=== PATIENT | female | born 2000 | race Caucasian/White ===

== ENCOUNTER 2018-10-30 13:27 | Emergency (ER) | payer BC, OTHER ==
[2018-10-30 13:55] VITALS: BP 115/76
--- NOTE | 2018-10-30 14:18 | UC ---
Complaint Female HPI - HPI Summary HPI Summary: 18 year old female presents with 2 day history of dysuria, frequency, and urgency. Denies fever, chills, abdominal pain, nausea, vomiting, back/flank pain , hematuria, vaginal discharge, or dyspareunia. - History Of Current Complaint Chief Complaint: UCGU Stated Complaint: URINARY Time Seen by Provider: 10/30/18 13:51 Hx Obtained From: Patient Hx Last Menstrual Period: 1-2 weeks ago Onset/Duration: Gradual Onset, Lasting Days - 2 Pain Intensity: 0 Character: Burning Aggravating Factor(s): Urination Associated Signs And Symptoms: Negative: Fever, Back Pain, Vaginal Bleeding/ Discharge, Nausea, Vomiting(# Of Episodes =), Genital Swelling, Genital Blisters - Allergies/Home Medications Allergies/Adverse Reactions: Allergies Allergy/AdvReac Type Severity Reaction Status Date / Time cefuroxime [From Ceftin] Allergy Vomiting Verified 10/30/18 13:50 Home Medications: Home Medications Etonogestrel [Nexplanon] 68 mg .SEE ORDER ONCE 10/30/18 [History Confirmed 10/30] PMH/Surg Hx/FS Hx/Imm Hx Previously Healthy: Yes GI/ History: Renal Disease - Glomerulonephritis - Surgical History Surgical History: Yes Surgery Procedure, Year, and Place: KIDNEY BIOPSIES X2 - Family History Known Family History: Positive: Non-Contributory - Social History Occupation: Employed Part-time Lives: With Family Alcohol Use: None Substance Use Type: None Smoking Status (MU): Never Smoked Tobacco Review of Systems All Other Systems Reviewed And Are Negative: Yes Constitutional: Negative: Fever, Chills Gastrointestinal: Negative: Abdominal Pain, Vomiting, Diarrhea, Nausea Genitourinary: Positive: Dysuria, Frequency, Urgency. Negative: Hematuria, Vaginal/Penile Burning, Vaginal/Penile Itching, Vaginal/Penile Discharge, Ulceration/Lesion, Abnormal Bleeding Is Patient Immunocompromised?: No Physical Exam - Summary Physical Exam Summary: GENERAL APPEARANCE: Well developed, well nourished, alert and cooperative, and appears to be in no acute distress. CARDIAC: Normal S1 and S2. No S3, S4 or murmurs. Rhythm is regular. There is no peripheral edema, cyanosis or pallor. Extremities are warm and well perfused. Capillary refill is less than 2 seconds. LUNGS: Clear to auscultation and percussion without rales, rhonchi, wheezing or diminished breath sounds. ABDOMEN: Positive bowel sounds. Soft, nondistended, nontender. No guarding or rebound. No masses or hepatosplenomegally. No CVA tenderness. MUSKULOSKELETAL: ROM intact to all extremities. No joint erythema or tenderness. Normal muscular development. Normal gait. NEUROLOGICAL: Awake, alert, and oriented. SKIN: Skin normal color, texture and turgor with no lesions or eruptions. Triage Information Reviewed: Yes Vital Signs: Initial Vital Signs Temp 98.1 F 10/30/18 13:52 Pulse 89 10/30/18 13:52 Resp 14 10/30/18 13:52 BP 115/76 10/30/18 13:52 Pulse Ox 100 10/30/18 13:52 Vital Signs Reviewed: Yes Diagnostics - Laboratory Diagnostic Studies Completed/Ordered: POC US 3+ blood, 3+ protein, 1+ leukocytes. Urine culture pending. Complaint Female Dx - Course Course Of Treatment: 18 year old female presents with 2 day history of dysuria, frequency, and urgency. Denies fever, chills, abdominal pain, nausea, vomiting, back/flank pain, hematuria, vaginal discharge, or dyspareunia. Afebrile. Exam unremarkable. POC UA reveals 3+ protein, 3+ blood, and 1+ leukocytes. Culture pending. Will treat empirically for acute cystitis with Bactrim DS BID x 5 days. Provided Pyridium TID for 2 days for dysuria. She is to follow up with her PCP in 5-7 days if symptoms persist. Warning symptoms reviewed. Verbalizes understanding and agrees with POC. - Differential Dx/Diagnosis Differential Diagnosis/HQI/PQRI: , Renal Colic, Ureteral Stone, Urinary Tract Infection Provider Diagnosis: Acute cystitis with hematuria Discharge - Sign-Out/Discharge Documenting (check all that apply): Patient Departure All imaging exams completed and their final reports reviewed: No Studies - Discharge Plan Condition: Stable Disposition: HOME Prescriptions: Phenazopyridine TAB* [Pyridium 100 mg TAB*] 100 mg PO TID #6 tab Sulfamethox/Trimethoprim DS* [Bactrim DS 800/160 TAB*] 1 tab PO BID #10 tab Patient Education Materials: Urinary Tract Infection in Women (ED) Referrals: No Primary Care Phys,NOPCP [Primary Care Provider] - Additional Instructions: Your urine test in the clinic today is suggestive of a urinary tract infection. We will start you on an antibiotic to treat for the infection. We will also send a urine culture today to see what bacteria grow out and make sure the antibiotic you were prescribed is appropriate to treat the infection. It will take 48-72 hours to get these results. We will contact you if there is any change in your treatment plan. Take Bactrim DS 1 tab every 12 hours for 5 days. Take Pyridium 1 tablet every 8 hours for next 2 days to help with the discomfort. This medication will turn your urine an orange color. Drink plenty of fluids. To help prevent urinary tract infections: 1) Be sure to wipe from front to back. 2) Urinate immediately after any sexual intercourse. 3) Avoid taking bubble baths. Follow up with your primary care provider in 5-7 days if symptoms persist. Seek immediate medical attention in the emergency room if you develop fever greater than 100.5 F, have severe abdominal pain, persistent vomiting, or any worsening of symptoms. - Billing Disposition and Condition Condition: STABLE Disposition: Home
== END 2018-10-30 14:29 | disposition home or self-care (01) ==
LOC: UCCORT 13:27
DX: N30.01 Acute cystitis with hematuria (principal); Z88.1 Allergy status to other antibiotic agents
CPT/HCPCS: 81003; 87086; 99202; G0463

== ENCOUNTER 2019-02-04 17:49 | Emergency (ER) | payer OTHER ==
[2019-02-04 18:06] VITALS: BP 128/83
--- NOTE | 2019-02-04 18:22 | UC ---
UC General HPI - HPI Summary HPI Summary: x4 months pt has had "popping" in her jaw, mainly left side but now is feeling bilateral pain and "constant cracking". Both sibling and mother have hx of TMJ - History of Current Complaint Chief Complaint: UCGeneralIllness Stated Complaint: JAW COMPLAINT Time Seen by Provider: 02/04/19 18:19 Hx Obtained From: Patient Hx Last Menstrual Period: current Onset/Duration: Sudden Onset, Lasting Weeks Onset Severity: Mild Current Severity: Mild Pain Intensity: 2 Associated Signs & Symptoms: Positive: Other - clicking and popping with jaw movment - Allergy/Home Medications Allergies/Adverse Reactions: Allergies Allergy/AdvReac Type Severity Reaction Status Date / Time cefuroxime [From Ceftin] Allergy Vomiting Verified 02/04/19 18:06 PMH/Surg Hx/FS Hx/Imm Hx Previously Healthy: Yes - Surgical History Surgical History: Yes Surgery Procedure, Year, and Place: KIDNEY BIOPSIES X2 - Family History Known Family History: Positive: Non-Contributory Negative: Cardiac Disease, Hypertension - Social History Alcohol Use: None Substance Use Type: None Smoking Status (MU): Never Smoked Tobacco Review of Systems All Other Systems Reviewed And Are Negative: Yes Constitutional: Positive: Negative Skin: Positive: Negative Eyes: Positive: Negative ENT: Positive: Other - jaw pain Respiratory: Positive: Negative Cardiovascular: Positive: Negative Gastrointestinal: Positive: Negative Genitourinary: Positive: Negative Motor: Positive: Negative Neurovascular: Positive: Negative Musculoskeletal: Positive: Negative Neurological: Positive: Negative Psychological: Positive: Negative Is Patient Immunocompromised?: No Physical Exam Triage Information Reviewed: Yes Appearance: Well-Appearing, Well-Nourished, Pain Distress Vital Signs: Initial Vital Signs Temp 97.9 F 02/04/19 18:03 Pulse 87 02/04/19 18:03 Resp 18 02/04/19 18:03 BP 128/83 02/04/19 18:03 Pulse Ox 100 02/04/19 18:03 Vital Signs Reviewed: Yes Eye Exam: Normal ENT Exam: Normal ENT: Positive: Pharynx normal, Other - left TMJ musculature is tight, pain with palpation ans stretching Dental Exam: Normal Neck exam: Normal Neck: Positive: Supple, Nontender, No Lymphadenopathy Respiratory Exam: Normal Cardiovascular Exam: Normal Abdominal Exam: Normal Bowel Sounds: Positive: Present Musculoskeletal Exam: Normal Neurological Exam: Normal Psychological Exam: Normal Skin Exam: Normal Course/Dx - Course Course Of Treatment: hx obtained, exam performed ,meds reviewed, demonstrated stertches and exercises to help the pain and imbalance - Diagnoses Provider Diagnosis: TMJ arthralgia Discharge - Sign-Out/Discharge Documenting (check all that apply): Patient Departure All imaging exams completed and their final reports reviewed: No Studies - Discharge Plan Condition: Stable Disposition: HOME Patient Education Materials: Temporomandibular Disorder (ED) Referrals: No Primary Care Phys,NOPCP [Primary Care Provider] - Additional Instructions: 1. heat the jaw and stretch like we talked about 2. Tylenol for pain 3. If not improving with the heat, stretching and rest. follow up with PT. - Billing Disposition and Condition Condition: STABLE Disposition: Home
== END 2019-02-04 18:41 | disposition home or self-care (01) ==
LOC: UCCORT 17:49
DX: M26.623 Arthralgia of bilateral temporomandibular joint (principal); Z88.1 Allergy status to other antibiotic agents
CPT/HCPCS: 99211; G0463

== ENCOUNTER 2019-11-12 14:12 | Emergency (ER) | payer OTHER ==
[2019-11-12 14:25] VITALS: BP 112/67
--- NOTE | 2019-11-12 14:38 | UC ---
Skin Complaint HPI - HPI Summary HPI Summary: Pt presents with c/o of painful lump on forehead that began after pt states she had a pimple on left side of forehead that she "popped" and noticed that a blood blister formed after. Pt attempted to drain the blood blister with no drainage. Now pt states that bump is painful and soft but "attached" to left side of forehead and has enlarge since initial onset. - History of Current Complaint Chief Complaint: UCSkin Time Seen by Provider: 11/12/19 14:18 Stated Complaint: SKIN CONCERN Hx Obtained From: Patient Hx Last Menstrual Period: 10/17/19 ?: No Onset/Duration: Gradual Onset, Lasting Weeks, Still Present, Worse Since - onset Skin Exposure Onset/Duration: Weeks Ago Timing: Constant Onset Severity: Mild Current Severity: Mild Pain Intensity: 0 Location: Discrete, Face - left side of forehead Character: Swelling, Redness, Raised, Painful Aggravating Factor(s): Touch Alleviating Factor(s): Nothing Associated Signs & Symptoms: Positive: Tenderness Related History: Trauma - with attempts to pop and drain - Allergy/Home Medications Allergies/Adverse Reactions: Allergies Allergy/AdvReac Type Severity Reaction Status Date / Time cefuroxime [From Ceftin] Allergy Vomiting Verified 11/12/19 14:26 Home Medications: Home Medications Fexofenadine HCl [Allergy Relief] 60 mg PO DAILY 11/12/19 [History Confirmed ] Lisinopril [Zestril 5 MG-] 5 mg PO BID 11/12/19 [History Confirmed 11/12/19] [place]coe-3 Fatty Acids (Nf) [Fish Oil (NF)] 6,000 mg PO BID 11/12/19 [History Confirmed 11/12/19] Venlafaxine HCl [Effexor XR-] 37.5 mg PO DAILY 11/12/19 [History Confirmed 11/12] PMH/Surg Hx/FS Hx/Imm Hx Previously Healthy: Yes - Surgical History Surgical History: Yes Surgery Procedure, Year, and Place: KIDNEY BIOPSIES X 3-last was 08/2019 - Family History Known Family History: Positive: Non-Contributory Negative: Cardiac Disease, Hypertension - Social History Lives: With Family Alcohol Use: None Substance Use Type: None Smoking Status (MU): Never Smoked Tobacco - Immunization History Vaccination Up to Date: Yes Review of Systems All Other Systems Reviewed And Are Negative: Yes Constitutional: Positive: Negative Skin: Positive: Other - tender, soft lump on left side of head Eyes: Positive: Negative ENT: Positive: Negative Respiratory: Positive: Negative Cardiovascular: Positive: Negative Gastrointestinal: Positive: Negative Genitourinary: Positive: Negative Motor: Positive: Negative Neurovascular: Positive: Negative Musculoskeletal: Positive: Negative Neurological: Positive: Negative Psychological: Positive: Negative Is Patient Immunocompromised?: No Physical Exam Triage Information Reviewed: Yes Appearance: Well-Appearing Vital Signs: Initial Vital Signs Temp 98.8 F 11/12/19 14:19 Pulse 76 11/12/19 14:19 Resp 18 11/12/19 14:19 BP 112/67 11/12/19 14:19 Pulse Ox 100 11/12/19 14:19 Vital Signs Reviewed: Yes Eye Exam: Normal ENT: Positive: Hearing grossly normal Neck exam: Normal Respiratory Exam: Normal Cardiovascular Exam: Normal Musculoskeletal Exam: Normal Neurological Exam: Normal Psychological Exam: Normal Skin Exam: Other - soft, moveable erythematous mass that extends from forehead ~ 5mm from head. pt c/o that moveable mass is tender and will bleed alot if attempt to drain it. mild erythema and covered in crusty dry skin Course/Dx - Differential Diagnoses - Skin Complaint Differential Diagnoses: Cellulitis, MRSA, Tinea, Urticaria - Diagnoses Provider Diagnosis: Pyogenic granuloma Discharge ED - Sign-Out/Discharge Documenting (check all that apply): Patient Departure All imaging exams completed and their final reports reviewed: No Studies - Discharge Plan Condition: Stable Disposition: HOME Referrals: Maryan Blanton MD [Medical Doctor] - As Soon As Possible Blanca Glass NP [Primary Care Provider] - As Soon As Possible Additional Instructions: What is a pyogenic granuloma? Pyogenic granulomas are skin growths that are small, round, and usually bloody red in color. They tend to bleed because they contain a large number of blood vessels. Theyre also known as lobular capillary hemangioma or granuloma telangiectaticum. These skin growths mainly develop in children and young adults, although they can develop in people of all ages. Theyre also fairly common in women. The hormone changes that occur during can cause these growths to develop. A pyogenic granuloma starts off as a lesion with a rapid growth period that usually lasts a few weeks. It then stabilizes into a raised, reddish nodule that s typically smaller than 2 centimeters. The lesion can appear smooth, or it might have a crusty or rough surface, particularly if it bleeds a lot. Pyogenic granulomas are benign. This means theyre noncancerous. Doctors can safely remove them through various methods. - Billing Disposition and Condition Condition: STABLE Disposition: Home
== END 2019-11-12 14:46 | disposition home or self-care (01) ==
LOC: UCCORT 14:12
DX: L98.0 Pyogenic granuloma (principal); Z88.1 Allergy status to other antibiotic agents
CPT/HCPCS: 99211; G0463

== ENCOUNTER 2020-01-03 12:15 | Emergency (ER) | payer OTHER ==
--- OUTSIDE RECORDS SUMMARY | 2020-01-03 12:23 | XMS REPORT | Continuity of Care Document ---
:2000 External Reference #:[id number] Author Name Morena Boss M.D. Address [address] [place] [address] Care Team Providers Name Role Phone Josefa Aguilar M.D. - Adolescent Care Team Information Basket Grader [phone] Medicine Blanca Glass F.N.P. Care Team Information Basket Grader [phone] Problems Active Problems Provider Date Atopic dermatitis Morena Boss M.D. Onset: 12/12/2019 Mild persistent asthma Morena Boss M.D. Onset: 12/12/2019 Body mass index 20-24 - [facility] Onset: 01/20/2016 Allergic rhinitis due to pollen Morena Boss M.D. Onset: 05/22/2014 Allergic rhinitis Morena Boss M.D. Onset: 05/22/2014 Allergic asthma without status asthmaticus John Mills M.D. 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 Onset: 08/24/2013 Urticaria John Mills M.D. Onset: 08/24/2013 Social History Type Date Description Comments Sex Unknown ETOH Use Denies alcohol use Tobacco Use Start: Unknown Patient has never smoked Recreational Drug Use Denies Drug Use Allergies, Adverse Reactions, Alerts Active Allergies Reaction Severity Comments Date Ceftin Moderate Nausea and vomiting 09/25/2014 Medications Active Medications SIG Qnty Indications Ordering Date Provider Ventolin HFA 2 puffs inhalation 18gm J45.30 Morena Pugh 12/12/2019 every 4 hours as Juan Diego Boss 108(90Base) mcg/Act needed Aerosol Symbicort 2 puffs inhalation 10.200gm J45.30 Morena M 12/12/2019 twice a day Juan Diego Boss 80-4.5mcg/Act Aerosol Fexofenadine HCL 1 tab by mouth 30tabs J30.2 Lyndsey Aldridge, 05/22/2014 every day FISH TENDER-BC 180mg Tablets Aerochamber Plus use as directed 1units J30.2 Morena M 05/22/2014 Flow Vu with albuterol Juan Diego Boss Misc Lisinopril one a day Unknown 10mg Tablets Nexplanon Unknown 68mg Implant Venlafaxine HCL ER Quan, Hansel Rios 37.5mg Caps ER 24HR Fish Oil 1 capsule daily. Unknown 1200mg Capsules Immunizations CPT Code Status Date Vaccine Lot # [id number] Given 10/29/2013 Influenza Vaccine 15377 Given Unknown Influenza Vaccine Vital Signs Date Vital Result Comment 12/12/2019 8:56am Height 62 inches 5'2" Weight 134.00 lb Weight 60.782 kg Respiratory Rate 16 /min Heart Rate 83 /min BP Systolic 93 mmHg BP Diastolic 52 mmHg Fractional Exhaled Nitric Oxide 20 BMI (Body Mass Index) 24.5 kg/m2 01/20/2016 8:34am Height 61.5 inches 5'1.50" Weight 132.00 lb Weight 59.875 kg Respiratory Rate 16 /min Heart Rate 102 /min O2 % BldC Oximetry 98 % BP Systolic 98 mmHg BP Diastolic 57 mmHg Asthma Control Test 22 BMI (Body Mass Index) 24.5 kg/m2 Body Mass Index Percentile 80 % Height Percentile 14 % Weight Percentile 65th Results Description No Information Available Procedures Date Code Description Status 12/12/2019 62882 Nitric Oxide Gas Determination Completed 12/12/2019 54860 Pulmonary Function Test Completed Medical Devices Description No Information Available Encounters Description No Information Available Assessments Date Code Description Provider 12/12/2019 J45.30 Mild persistent asthma, uncomplicated Morena Boss M.D. 12/12/2019 J30.89 Other allergic rhinitis Morena Boss M.D. 12/12/2019 L20.9 Atopic dermatitis, unspecified Morena Boss M.D. 12/12/2019 J30.1 Allergic rhinitis due to pollen Morena Boss M.D. Plan of Treatment Future Appointment(s):01/23/2020 11:20 am - Morena Boss M.D. at [facility]/23/2020 11:00 am - [facility]12[facility]2019 - Morena Boss M.D.J45.30 Mild persistent asthma, uncomplicatedNew Medication:Ventolin HFA 108(90 Base) mcg/Act - 2 puffs inhalation every 4 hours as neededSymbicort 80-4.5 mcg/Act - 2 puffs inhalation twice a dayNew Orders: Feno, Scheduled: 12/12/19Recommendations:Eugenie wnl at 18 Full PFT is c/w mild asthma start Symbicort 80/4.5 2 puffs twice daily; rinse mouth after use Use Albuterol 2 puffs every 4 hours as needed for cough, shortness of breath or chest tightness or 15 minutes prior to exercise; call if using >2x/week aside from pre-pqvbbugqK09.89 Other allergic rhinitisRecommendations:prior testing reviewed continue Faye 180 mg once daily as needed use Flonase 2 sprays to each nostril once daily repeat skin testing in f/u (pt took Faye last night)L20.9 Atopic dermatitis, unspecifiedRecommendations:skin care recommendations: Soaking baths 20-30 mins daily Recommend moisturizer 3-4x/day ( Vanicream or Vaseline or Cerave) Use 1% hydrocortisone cream twice daily as needed to affected areas OR Triamcinolone 0.025% twice daily to affected areas ( not the face)J30.1 Allergic rhinitis due to pollenFollow up:6 weeks, CHECK-UP/ FOLLOW UP VISIT: Continued management of patient's medical care, sooner if needed*PRICK TESTS: Specific drops of allergens are applied to scratches that have been placed on the patient's body. *TAKE NO ANTIHISTAMINES OR MEDICATIONS THAT CONTAIN ANTIHISTAMINES 72 HOURS PRIOR TO SKIN TESTING VISIT .Recommendations:see above Functional Status Description No Information Available Mental Status Description No Information Available Referrals Description No Information Available
[2020-01-03 12:29] VITALS: BP 117/83
--- NOTE | 2020-01-03 12:40 | UC ---
Abdominal Pain Female HPI - HPI Summary HPI Summary: epigastric pain x 1 days pain is sharp , 6 out 10 , no radiation nothing makes it better or works has been vomiting multiple times , + diarrhea body and joint pain , no fever concern about flu, wants to be tested - History of Current Complaint Chief Complaint: UCGI Stated Complaint: FLULIKE SYMPTOMS Time Seen by Provider: 01/03/20 12:23 Hx Obtained From: Patient Hx Last Menstrual Period: 12/18/2019 ?: No Onset/Duration: Gradual Onset, Lasting Days - 1, Still Present Timing: Constant Severity Initially: Moderate Severity Currently: Moderate Pain Intensity: 4 Location: Diffuse, Epigastric Radiates: No Character: Burning Aggravating Factor(s): Nothing Alleviating Factor(s): Nothing Associated Signs and Symptoms: Positive: Decreased Appetite, Nausea, Vomiting, Diarrhea. Negative: Fever, Cough, Chest Pain, Dizzy, Back Pain, Constipation, Blood in Stool, Urinary Symptoms, Vaginal Bleeding, Vaginal Discharge Allergies/Adverse Reactions: Allergies Allergy/AdvReac Type Severity Reaction Status Date / Time cefuroxime [From Ceftin] Allergy Vomiting Verified 01/03/20 12:25 Home Medications: Home Medications Ondansetron ODT TAB* [Zofran 4 MG Odt TAB*] 4 mg PO Q6H PRN 01/03/20 [History Confirmed 01/03/20] PMH/Surg Hx/FS Hx/Imm Hx Previously Healthy: Yes - Surgical History Surgical History: Yes Surgery Procedure, Year, and Place: KIDNEY BIOPSIES X 3-last was 08/2019 - Family History Known Family History: Positive: Non-Contributory Negative: Cardiac Disease, Hypertension - Social History Alcohol Use: None Substance Use Type: None Smoking Status (MU): Never Smoked Tobacco - Immunization History Vaccination Up to Date: Yes Review of Systems All Other Systems Reviewed And Are Negative: Yes Constitutional: Positive: Chills, Fatigue. Negative: Fever Skin: Positive: Negative Eyes: Positive: Negative ENT: Positive: Negative Respiratory: Positive: Cough Cardiovascular: Positive: Negative Gastrointestinal: Positive: Abdominal Pain, Vomiting, Diarrhea, Nausea Genitourinary: Positive: Negative Is Patient Immunocompromised?: No Physical Exam Triage Information Reviewed: Yes Appearance: Well-Appearing, No Pain Distress, Well-Nourished Vital Signs: Initial Vital Signs Temp 98.1 F 01/03/20 12:23 Pulse 117 01/03/20 12:23 Resp 14 01/03/20 12:23 BP 117/83 01/03/20 12:23 Pulse Ox 99 01/03/20 12:23 Vital Signs Reviewed: Yes Eye Exam: Normal Eyes: Positive: Conjunctiva Clear ENT: Positive: Normal ENT inspection, Hearing grossly normal, Pharynx normal Neck: Positive: Supple, Nontender, No Lymphadenopathy Respiratory: Positive: Chest non-tender, Lungs clear, Normal breath sounds Cardiovascular: Positive: RRR, No Murmur, Pulses Normal Abdomen Description: Positive: Nontender, Soft. Negative: CVA Tenderness (R), CVA Tenderness (L), Distended, Guarding Bowel Sounds: Positive: Present Abd Pain Female Course/Dx - Differential Dx/Diagnosis Provider Diagnosis: Gastroenteritis Discharge ED - Sign-Out/Discharge Documenting (check all that apply): Patient Departure All imaging exams completed and their final reports reviewed: No Studies - Discharge Plan Condition: Stable Disposition: HOME Prescriptions: Ondansetron ODT TAB* [Zofran 4 MG Odt TAB*] 8 mg PO Q8H PRN #6 tab.odt PRN Reason: Nausea/Vomiting Patient Education Materials: Gastroenteritis (ED) Forms: *Work Release Referrals: Blanca Glass NP [Primary Care Provider] - If Needed - Billing Disposition and Condition Condition: STABLE Disposition: Home
[2020-01-03 12:49] LABS: Influenza A Molecular Negative (Negative); Influenza B Molecular Negative (Negative)
== END 2020-01-03 12:54 | disposition home or self-care (01) ==
LOC: UCCORT 12:15
DX: K52.9 Noninfective gastroenteritis and colitis, unspecified (principal); R68.83 Chills (without fever); R53.83 Other fatigue; Z88.8 Allergy status to other drugs, medicaments and biological substances
CPT/HCPCS: 99212; G0463

== ENCOUNTER 2020-01-12 17:48 | Emergency (ER) | payer OTHER ==
[2020-01-12 18:18] VITALS: BP 112/75
--- NOTE | 2020-01-12 18:59 | UC ---
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 daily no n/v/d - History of Current Complaint Chief Complaint: UCRespiratory Stated Complaint: SORE THROAT, HEADACHE, URINARY Time Seen by Provider: 01/12/20 18:52 Hx Obtained From: Patient Hx Last Menstrual Period: last week Onset/Duration: Gradual Onset, Lasting Days Severity: Mild Pain Intensity: 4 Pain Scale Used: 0-10 Numeric Cough: None - Epiglottits Risk Factors Epiglottis Risk Factors: Negative - Allergies/Home Medications Allergies/Adverse Reactions: Allergies Allergy/AdvReac Type Severity Reaction Status Date / Time cefuroxime [From Ceftin] Allergy Vomiting Verified 01/12/20 18:18 PMH/Surg Hx/FS Hx/Imm Hx Previously Healthy: Yes GI/ History: Renal Disease - Surgical History Surgical History: Yes Surgery Procedure, Year, and Place: KIDNEY BIOPSIES X 3-last was 08/2019 - Family History Known Family History: Positive: Non-Contributory Negative: Cardiac Disease, Hypertension - Social History Alcohol Use: Occasionally Substance Use Type: None Smoking Status (MU): Never Smoked Tobacco - Immunization History Vaccination Up to Date: Yes Review of Systems All Other Systems Reviewed And Are Negative: Yes Constitutional: Positive: Negative Skin: Positive: Negative Eyes: Positive: Negative ENT: Positive: Sore Throat Respiratory: Positive: Negative Cardiovascular: Positive: Negative Gastrointestinal: Positive: Negative Genitourinary: Positive: Negative Motor: Positive: Negative Neurovascular: Positive: Negative Musculoskeletal: Positive: Negative Neurological/Mental Status: Positive: Negative Psychological: Positive: Negative Physical Exam Triage Information Reviewed: Yes Appearance: Well-Appearing, No Pain Distress, Well-Nourished Vital Signs: Initial Vital Signs Temp 98.9 F 01/12/20 18:12 Pulse 104 01/12/20 18:12 Resp 20 01/12/20 18:12 BP 112/75 01/12/20 18:12 Pulse Ox 99 01/12/20 18:12 Vital Signs Reviewed: Yes Eyes: Positive: Conjunctiva Clear ENT: Positive: Hearing grossly normal, Uvula midline. Negative: Nasal congestion, Nasal drainage, Tonsillar swelling, Tonsillar exudate, Muffled voice , Hoarse voice Dental Exam: Normal Neck: Positive: Supple, Nontender, No Lymphadenopathy Respiratory: Positive: Lungs clear, Normal breath sounds, No respiratory distress Cardiovascular: Positive: RRR, No Murmur Abdomen Description: Positive: Nontender, No Organomegaly. Negative: CVA Tenderness (R), CVA Tenderness (L) Musculoskeletal: Positive: ROM Intact, No Edema Neurological: Positive: Alert Psychological Exam: Normal Skin Exam: Normal Diagnostics - Laboratory Lab Results: strep (+) UA +++RBCs +++ pro Throat Pain/Nasal Course/Dx - Differential Dx/Diagnosis Provider Diagnosis: Strep throat Discharge ED - Sign-Out/Discharge Documenting (check all that apply): Patient Departure All imaging exams completed and their final reports reviewed: No Studies - Discharge Plan Condition: Stable Disposition: HOME Prescriptions: Amoxicillin PO (*) [Amoxicillin 875 MG (*)] 875 mg PO BID #20 tab Patient Education Materials: Strep Throat (ED) Referrals: Blanca Glass NP [Primary Care Provider] - Additional Instructions: Please call your kidney specialist and relay your urine results see if they want to move up your next appt - Billing Disposition and Condition Condition: STABLE Disposition: Home
== END 2020-01-12 19:05 | disposition home or self-care (01) ==
LOC: UCCORT 17:48
DX: J02.0 Streptococcal pharyngitis (principal); Z88.1 Allergy status to other antibiotic agents
CPT/HCPCS: 81003; 87651; 99212; G0463